=== PATIENT | female | born 1945 | race Caucasian/White ===

== ENCOUNTER → 2017-10-21 | Outpatient (CLI) | payer MEDICARE, OTHER ==
[~2017-10-21] MED LIST: DIPH1TAB PO; METO100T7 PO; RIVA20TA PO; SUMA100T3 PO
== END | disposition home or self-care (01) ==
LOC: CFH 11:06
PROVIDERS: ATTEND Registered Nurse General Practice
DX: N63.20 Unspecified lump in the left breast, unspecified quadrant (principal); M85.88 Other specified disorders of bone density and structure, other site; M81.0 Age-related osteoporosis without current pathological fracture; N95.9 Unspecified menopausal and perimenopausal disorder
CPT/HCPCS: 77080; 77066

== ENCOUNTER → 2017-11-21 | Outpatient (CLI) | payer MEDICARE, OTHER ==
[~2017-11-21] MED LIST changes: +REGADENOSON 0.4 MG/5 ML SYRINGE ONE
== END | disposition home or self-care (01) ==
LOC: CFH 11:12
PROVIDERS: ATTEND Internal Medicine Cardiovascular Disease
DX: I48.91 Unspecified atrial fibrillation (principal); I08.1 Rheumatic disorders of both mitral and tricuspid valves; I10 Essential (primary) hypertension; Z87.891 Personal history of nicotine dependence; Z85.3 Personal history of malignant neoplasm of breast
CPT/HCPCS: 93306; J2785

== ENCOUNTER → 2017-11-25 | Outpatient (CLI) | payer MEDICARE, OTHER | END | disposition home or self-care (01) | LOC: RAD 06:55 | PROVIDERS: ATTEND Internal Medicine Cardiovascular Disease | DX: R07.9 Chest pain, unspecified (principal) | CPT/HCPCS: 78452; 93017; A9502; J2785 ==

== ENCOUNTER → 2017-12-03 | Outpatient (CLI) | payer MEDICARE, OTHER ==
[~2017-12-03] MED LIST changes: +CHLO25TA PO; +DILT360C26 PO; +DIPH25CA61 PO; +LACT1CAP35 PO; +ONDA4TAB7 PO; -REGADENOSON 0.4 MG/5 ML SYRINGE ONE
== END ==
LOC: STAR 08:57
PROVIDERS: ATTEND Surgery
DX: Z02.9 Encounter for administrative examinations, unspecified (principal)

== ENCOUNTER 2017-12-08 07:20 | Day surgery (SDC) | payer MEDICARE, OTHER ==
[~2017-12-08] VITALS: Ht 168.9 cm; Wt 102.4 kg
[~2017-12-08 07:20] MED LIST changes: +BUPIVACAINE/PF 0.5% ONE; +EPINEPHRINE 1 MG/ML, 1ML ONE; +ISOSULFAN BLUE 10 MG/ML, 5ML IV ONE
[2017-12-08] MEDS ORDERED: LACTATED RINGERS 1,000 ML IV SCH ×2 (07:47→18:30)
[2017-12-08] MEDS ORDERED: ACETAMINOPHEN 500 MG TABLET PO ONE (08:00)
[2017-12-08] MEDS ORDERED: ONDANSETRON ODT 8 MG PO ONE (08:00)
[2017-12-08] MEDS ORDERED: OxyconTIN ER 10 MG TAB.ER PO ONE (08:00)
[2017-12-08] MEDS ORDERED: GABAPENTIN 300 MG CAPSULE PO ONE (08:00)
[2017-12-08] MEDS ORDERED: LIDOCAINE-MPF 1%, 2ML ONE (08:27)
[2017-12-08] MEDS ORDERED: MIDAZOLAM 1 MG/ML, 2ML ONE (09:05)
[2017-12-08] MEDS ORDERED: FENTANYL PF 250 MCG/5ML ONE (09:05)
[2017-12-08] MEDS ORDERED: PROPOFOL 10 MG/ML, 20ML ONE (09:07)
[2017-12-08] MEDS ORDERED: GLYCOPYRROLATE 0.4 MG/2 ML, 2ML ONE (09:08)
[2017-12-08] MEDS ORDERED: NEOSTIGMINE 1 MG/ML, 10ML ONE (09:08)
[2017-12-08] MEDS ORDERED: DEXAMETHASONE 4 MG/ML, 1ML ONE ×2 (09:09)
[2017-12-08] MEDS ORDERED: ROCURONIUM 10MG/ML,5ML ONE (09:09)
[2017-12-08] MEDS ORDERED: CEFAZOLIN 1,000 MG ONE ×2 (09:10)
[2017-12-08] MEDS ORDERED: SODIUM CHLORIDE 0.9% PF 10ML ONE (09:10)
[2017-12-08] MEDS ORDERED: ONDANSETRON ODT 8 MG PO PRN (10:00)
[2017-12-08] MEDS ORDERED: LABETALOL 5MG/ML, 20ML IV PRN (10:00)
[2017-12-08] MEDS ORDERED: PROMETHAZINE 25 MG SUPP PR PRN (10:00)
[2017-12-08] MEDS ORDERED: PROMETHAZINE 25 MG/ML, 1ML IV PRN (10:00)
[2017-12-08] MEDS ORDERED: hydrALAzine 20 MG/ML, 1ML IV PRN (10:00)
[2017-12-08] MEDS ORDERED: MEPERIDINE/PF 25MG/0.5ML IVPush PRN (10:00)
[2017-12-08] MEDS ORDERED: OXYcodone 5 MG/5 ML ORAL.SOL UDC PO PRN (10:00)
[2017-12-08] MEDS ORDERED: MORPHINE SULFATE 4 MG/ML, 1ML IVPush PRN ×2 (10:00→18:30)
[2017-12-08] MEDS ORDERED: PROMETHAZINE 12.5 MG SUPP PR PRN (10:00)
[2017-12-08] MEDS ORDERED: HYDROmorphone 1 MG/ML, 1ML IV PRN (10:00)
[2017-12-08] MEDS ORDERED: KETOROLAC 30 MG/1 ML ONE (11:01)
[2017-12-08] MEDS ORDERED: OXYcodone 5 MG/5 ML ORAL.SOL UDC ONE (11:25)
[2017-12-08] MEDS ORDERED: FENTANYL PF 100 MCG/2ML ONE (11:25)
[2017-12-08] MEDS: FENTANYL PF 100 MCG/2ML IV PRN ×4 (11:30→12:03)
[2017-12-08] MEDS ORDERED: ONDANSETRON 2MG/ML, 2ML ONE (14:48)
[2017-12-08] MEDS ORDERED: ONDANSETRON 2MG/ML, 2ML IVPush PRN ×2 (17:00→18:30)
[2017-12-08] MEDS ORDERED: morphine SULFATE 10 MG/ML, 1ML IVPush PRN (17:00)
[2017-12-08] MEDS ORDERED: HYDROcodone/APAP 5/325 TABLET PO PRN (18:30)
[2017-12-08 19:00] VITALS: BP 113/65
[2017-12-08] MEDS ORDERED: SUMATRIPTAN 100 MG TABLET PO PRN (19:00)
[2017-12-08] MEDS ORDERED: DIPHENOXYLATE/ATROPINE TABLET PO PRN (19:00)
[2017-12-08] MEDS ORDERED: DIPHENHYDRAMINE 25 MG CAPSULE PO PRN (19:00)
[2017-12-08] MEDS: LACTATED RINGERS 1,000 ML IV SCH (20:41)
[2017-12-08] MEDS: LACTOBACILLUS CHEW TABLET PO SCH (20:41)
[2017-12-08] MEDS: HYDROcodone/APAP 5/325 TABLET PO PRN (20:41)
[2017-12-08 23:42] VITALS: BP 121/76
[2017-12-09 03:08] VITALS: BP 129/75
[2017-12-09] MEDS: LACTATED RINGERS 1,000 ML IV SCH (06:20)
[2017-12-09 07:49] VITALS: BP 113/70
[2017-12-09] MEDS: LACTOBACILLUS CHEW TABLET PO SCH (08:16)
[2017-12-09] MEDS: HYDROcodone/APAP 5/325 TABLET PO PRN (08:16)
[2017-12-09] MEDS ORDERED: METOPROLOL TARTRATE 100 MG TABLET PO SCH (09:00)
[2017-12-09] MEDS ORDERED: CHLORTHALIDONE 25 MG TABLET PO SCH (09:00)
[2017-12-09] MEDS ORDERED: RIVAROXABAN 20 MG TABLET PO SCH (09:00)
[2017-12-09] MEDS ORDERED: DILTIAZEM CD 180 MG CAP.ER.24H PO SCH (09:00)
== END 2017-12-09 10:34 ==
LOC: OUT 07:20 → EDSTATUS 10:00 → 4NOR 18:05 → OUT 22:39 → UNDOADMOB 22:40 → 4NOR 22:40 → UNDOADMOB 22:48 → 4NOR 22:48 → OUT 12-09 10:34 → UNDODISOB 12-09 10:34
PROVIDERS: ATTEND Surgery
DX: N20.0 Calculus of kidney (principal); Z90.49 Acquired absence of other specified parts of digestive tract
CPT/HCPCS: 38792; 52356; 88307; 88331; 88333; A9541; C1729; J0171; J0690; J1100; J1885; J2250; J2704; J2710; J3010; J3490; J7120; Q0162; G0378

== ENCOUNTER → 2019-12-27 | Outpatient (CLI) | payer MEDICARE, OTHER ==
[~2019-12-27] MED LIST changes: -BUPIVACAINE/PF 0.5% ONE; -EPINEPHRINE 1 MG/ML, 1ML ONE; -ISOSULFAN BLUE 10 MG/ML, 5ML IV ONE
== END | disposition home or self-care (01) ==
LOC: CFH 06:51
PROVIDERS: ATTEND Internal Medicine Cardiovascular Disease
DX: I34.0 Nonrheumatic mitral (valve) insufficiency (principal); I10 Essential (primary) hypertension; I48.20 Chronic atrial fibrillation, unspecified
CPT/HCPCS: 93306

== ENCOUNTER 2020-01-16 11:37 | Emergency (ER) | payer MEDICARE, OTHER ==
[~2020-01-16] VITALS: Ht 167.6 cm; Wt 110.3 kg
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
--- NOTE | 2020-01-16 12:33 | NUR ---
pt taken to radiology.
--- NOTE | 2020-01-16 12:33 | NUR ---
break RN note: pt attached to all monitors, pt is in afib rate 110-140 with no ectopy. pt is a&o, resps even and unlabored, pt able to speak in full sentences without difficulty. MD Faustin notified of pt's HR. awaiting orders for rate control med.
[2020-01-16 13:11] VITALS: BP 102/67
--- NOTE | 2020-01-16 13:12 | NUR ---
piv est on r ac with no complications. pt tolerated well.
--- NOTE | 2020-01-16 13:23 | NUR ---
edmd at bedside to explain all results at this time.
--- NOTE | 2020-01-16 14:11 | NUR ---
Patient given discharge instructions and they have confirmed that they understand the instructions. Patient ambulatory with steady gait.
== END 2020-01-16 14:11 | disposition home or self-care (01) ==
LOC: ED 12:18
DX: S22.22XA Fracture of body of sternum, initial encounter for closed fracture (principal); Z79.01 Long term (current) use of anticoagulants; I48.91 Unspecified atrial fibrillation; Z87.891 Personal history of nicotine dependence; V49.59XA Passenger injured in collision with other motor vehicles in traffic accident, initial encounter; Y93.89 Activity, other specified; Y92.410 Unspecified street and highway as the place of occurrence of the external cause; Y99.8 Other external cause status
CPT/HCPCS: 71045; 71120; 93005; 99284

== ENCOUNTER 2020-12-15 11:46 | Outpatient (CLI) | payer MEDICARE, OTHER ==
[~2020-12-15 11:46] MED LIST changes: +REGADENOSON 0.4 MG/5 ML SYRINGE ONE
== END 2020-12-15 23:59 | disposition home or self-care (01) ==
LOC: CFH 11:46
PROVIDERS: ATTEND Internal Medicine Cardiovascular Disease
DX: R07.89 Other chest pain (principal)
CPT/HCPCS: 78452; 93017; A9502; J2785